=== PATIENT | female | born 1990 | race Two or more races ===

== ENCOUNTER 2022-03-29 19:39 | Emergency (ER) | payer OTHER ==
[~2022-03-29] VITALS: Ht 157.5 cm; Wt 59.0 kg
[2022-03-29] MEDS ORDERED: LEVOFLOXACIN750 MG (20:57)
== END 2022-03-30 00:07 | disposition home or self-care (01) ==
LOC: ER 19:39
DX: L02.411 Cutaneous abscess of right axilla (principal); Z88.2 Allergy status to sulfonamides